=== PATIENT | female | born 1975 | race Caucasian/White ===

== ENCOUNTER 2017-05-06 19:05 | Emergency (ER) | payer MEDICAID, SELFPAY ==
[~2017-05-06] VITALS: Ht 157.5 cm; Wt 65.8 kg
[2017-05-06 19:10] VITALS: BP 118/77
[2017-05-06] MEDS ORDERED: DIAZEPAM 5 MG TABLET ONE (19:38)
[2017-05-06] MEDS ORDERED: HYDROmorphone 1 MG/ML, 1ML ONE (19:38)
[2017-05-06] MEDS ORDERED: DIAZEPAM 5 MG TABLET PO ONE (20:00)
[2017-05-06] MEDS ORDERED: HYDROmorphone 1 MG/ML, 1ML IM ONE (20:00)
== END 2017-05-06 20:45 | disposition home or self-care (01) ==
LOC: ED 20:39
DX: M54.16 Radiculopathy, lumbar region (principal); G89.11 Acute pain due to trauma; W22.8XXA Striking against or struck by other objects, initial encounter; Y93.89 Activity, other specified; Y92.89 Other specified places as the place of occurrence of the external cause; Y99.8 Other external cause status
CPT/HCPCS: 72110; 96372; 99284; J1170; J7512

== ENCOUNTER 2017-05-31 16:32 | Emergency (ER) | payer MEDICAID ==
[~2017-05-31] VITALS: Ht 157.5 cm; Wt 65.7 kg
[2017-05-31] MEDS ORDERED: SODIUM CHLORIDE 0.9% 1,000ML IVBOLUS ONE (17:00)
[2017-05-31] MEDS ORDERED: ONDANSETRON 2MG/ML, 2ML IVPush ONE (17:00)
[2017-05-31] MEDS ORDERED: SODIUM CHLORIDE FLUSH 10ML SYR IVF ONE (17:00)
[2017-05-31 17:08] LABS: HEMATOCRIT 43.3 % (34.6-47.8); HEMOGLOBIN 14.9 g/dL (11.7-16.4); WHITE BLOOD COUNT 12.1 x10^3/uL (3.4-10)
[2017-05-31] MEDS ORDERED: morphine SULFATE 10 MG/ML, 1ML ONE ×2 (17:18→19:16)
[2017-05-31] MEDS ORDERED: ONDANSETRON 2MG/ML, 2ML ONE ×2 (17:18→17:21)
[2017-05-31 17:19] LABS: BLOOD UREA NITROGEN 7 mg/dL (7-18)
[2017-05-31] MEDS: MORPHINE SULFATE 4 MG/ML, 1ML IVPush PRN ×2 (17:22→19:19)
[2017-05-31] MEDS ORDERED: GABA600T2 PO (17:34)
[2017-05-31] MEDS ORDERED: AMIT25TA PO (17:34)
[2017-05-31] MEDS ORDERED: TRAZ50TA18 PO (17:34)
[2017-05-31] MEDS ORDERED: IBUP-1222 PO (17:34)
[2017-05-31 20:28] VITALS: BP 124/70
== END 2017-05-31 20:31 | disposition home or self-care (01) ==
LOC: ED 18:26
DX: N93.8 Other specified abnormal uterine and vaginal bleeding (principal); N92.4 Excessive bleeding in the premenopausal period
CPT/HCPCS: 36415; 76830; 80048; 82040; 84703; 85025; 96361; 96374; 96375; 96376; 99285; J2405; J7030